=== PATIENT | female | born 1995 | race Caucasian/White ===

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

== ENCOUNTER → 2018-06-16 | Outpatient (REF) | payer OTHER, MEDICAID ==
[~2018-06-16] MED LIST: BUSP15TA47; RITA10TA; ZOLO50TA
== END ==
LOC: M LABNEURO 13:01
PROVIDERS: ATTEND Physician Assistant Medical
DX: E55.9 Vitamin D deficiency, unspecified (principal)

== ENCOUNTER 2019-10-13 18:11 | Emergency (ER) | payer MEDICAID, OTHER, SELFPAY ==
[~2019-10-13] VITALS: Ht 154.9 cm; Wt 67.6 kg
[2019-10-13] MEDS ORDERED: PRENATAL VIT (18:18)
[2019-10-13] MEDS ORDERED: NS 1,000 ML IV ONE (19:00)
[2019-10-13] MEDS ORDERED: METOCLOPRAMIDE INJ 10MG/2ML VIAL (J2765 PER 1) IV ONE (19:00)
[2019-10-13 19:28] LABS: BASO % 0.3 % (0.0-1.0); EOS # 0.1 10^3/uL (0.0-0.5); EOS % 1.1 % (0.0-3.0); HEMATOCRIT 41.9 % (36.0-47.0); HEMOGLOBIN 14.5 g/dl (12.0-15.5); LYMPH # 2.3 10^3/uL (1.5-5.0); LYMPH % 23.7 % (24.0-44.0); MEAN CORPUSCULAR HEMOGLOBIN 32.2 pg (27.0-33.0); MEAN CORPUSCULAR HGB CONC 34.6 g/dl (32.0-36.5); MEAN CORPUSCULAR VOLUME 93.1 fl (80.0-96.0); MONO # 0.8 10^3/uL (0.0-0.8); NEUTROPHILS # 6.3 10^3/uL (1.5-8.5); NEUTROPHILS % 66.6 % (36.0-66.0); PLATELET COUNT, AUTOMATED 256 10^3/uL (150-450); WHITE BLOOD COUNT 9.5 10^3/uL (4.0-10.0)
[2019-10-13 20:14] LABS: ALBUMIN 3.6 GM/DL (3.2-5.2); ALT/SGPT 21 U/L (12-78); BILIRUBIN,DIRECT 0.3 MG/DL (0.0-0.2); BILIRUBIN,TOTAL 1.4 MG/DL (0.2-1.0); BLOOD UREA NITROGEN 9 MG/DL (7-18); CALCIUM LEVEL 9.1 MG/DL (8.5-10.1); CARBON DIOXIDE LEVEL 19 MEQ/L (21-32); CHLORIDE LEVEL 106 MEQ/L (98-107); GLOMERULAR FILTRATION RATE > 60.0 (>60); GLUCOSE, FASTING 63 MG/DL (70-100); LIPASE 24 U/L (73-393); POTASSIUM SERUM 3.3 MEQ/L (3.5-5.1); SODIUM LEVEL 135 MEQ/L (136-145); TOTAL PROTEIN 7.1 GM/DL (6.4-8.2)
[2019-10-13 20:37] LABS: HCG, SERUM QUANTITATIVE 59213 MIU/ML
--- NOTE | 2019-10-13 21:26 | REPVR ---
PROCEDURE INFORMATION: Exam: US Abdomen, Limited; Right Upper Quadrant Exam date and time: 10/13/2019 9:02 PM Age: 24 years old Clinical indication: Nausea and vomiting; ; Additional info: N/v TECHNIQUE: Imaging protocol: US abdomen. Real time ultrasound with image documentation. Limited exam focused on the right upper quadrant. COMPARISON: No relevant prior studies available. FINDINGS: Liver: Unremarkable. Gallbladder: No gallstones. No gallbladder wall thickening or pericholecystic fluid. Negative sonographic Santizo's sign, as per the performing wool cleaner. Common bile duct: No stones. No ductal dilatation. Pancreas: Unremarkable as visualized. Right kidney: No mass. No definite stones. No hydronephrosis. IMPRESSION: No acute sonographic findings. Electronically signed by: Patrick Brown On 10/13/2019 21:26:07 PM
[2019-10-13] MEDS ORDERED: REGL10TA6 PO (21:46)
[2019-10-13 21:49] VITALS: BP 108/54
== END 2019-10-13 21:54 | disposition home or self-care (01) ==
LOC: M ED 18:11
DX: O21.0 Mild hyperemesis gravidarum (principal); O99.341 Other mental disorders complicating pregnancy, first trimester; F41.9 Anxiety disorder, unspecified; F33.9 Major depressive disorder, recurrent, unspecified; O99.331 Smoking (tobacco) complicating pregnancy, first trimester; F17.210 Nicotine dependence, cigarettes, uncomplicated; Z3A.00 Weeks of gestation of pregnancy not specified; Z88.8 Allergy status to other drugs, medicaments and biological substances
CPT/HCPCS: 76705; 80048; 80076; 81001; 83690; 84702; 85025; 96374; 99284; J2765

== ENCOUNTER → 2019-11-03 | Outpatient (CLI) | payer MEDICAID, OTHER ==
[~2019-11-03] MED LIST changes: +PRENATAL VIT; +REGL10TA6 PO
[2019-11-03 17:45] LABS: BASO % 0.4 % (0.0-1.0); EOS # 0.2 10^3/uL (0.0-0.5); EOS % 2.5 % (0.0-3.0); HEMATOCRIT 40.9 % (36.0-47.0); HEMOGLOBIN 13.8 g/dl (12.0-15.5); LYMPH # 2.5 10^3/uL (1.5-5.0); LYMPH % 31.6 % (24.0-44.0); MEAN CORPUSCULAR HEMOGLOBIN 32.2 pg (27.0-33.0); MEAN CORPUSCULAR HGB CONC 33.7 g/dl (32.0-36.5); MEAN CORPUSCULAR VOLUME 95.3 fl (80.0-96.0); MONO # 0.7 10^3/uL (0.0-0.8); MONO % 8.5 % (0.0-5.0); NEUTROPHILS # 4.5 10^3/uL (1.5-8.5); NEUTROPHILS % 56.9 % (36.0-66.0); PLATELET COUNT, AUTOMATED 263 10^3/uL (150-450); RED BLOOD COUNT 4.29 10^6/uL (4.00-5.40); WHITE BLOOD COUNT 7.9 10^3/uL (4.0-10.0)
[2019-11-03 19:04] LABS: HEPATITIS C VIRUS ABY INDEX 0.1 INDEX (<0.8); HIV 1&2 SCREEN CENTAUR NEGATIVE (NEGATIVE)
== END ==
LOC: M PLALAB 14:43
PROVIDERS: ATTEND Obstetrics & Gynecology
DX: Z34.01 Encounter for supervision of normal first pregnancy, first trimester (principal); Z3A.00 Weeks of gestation of pregnancy not specified

== ENCOUNTER → 2019-12-01 | Outpatient (REF) | payer MEDICAID, OTHER | LOC: M SFHCWAGY 16:55 | PROVIDERS: ATTEND Advanced Practice Midwife | DX: Z34.02 Encounter for supervision of normal first pregnancy, second trimester (principal) ==

== ENCOUNTER → 2019-12-30 | Outpatient (REF) | payer OTHER ==
[~2019-12-30] MED LIST changes: +ESCI10TA2 PO
== END ==
LOC: M SFHCWAGY 16:52
PROVIDERS: ATTEND Advanced Practice Midwife
DX: Z34.02 Encounter for supervision of normal first pregnancy, second trimester (principal); Z3A.00 Weeks of gestation of pregnancy not specified

== ENCOUNTER → 2019-12-30 | Outpatient (CLI) | payer OTHER ==
--- NOTE | 2019-12-30 17:33 | REP ---
INDICATION: ANATOMY COMPARISON: None. TECHNIQUE: Transabdominal obstetrical ultrasound with color Doppler evaluation. FINDINGS: Examination demonstrates a single live intrauterine in cephalic presentation. motion is identified by technologist. Placenta is noted anterior and grade 1 without evidence for placenta previa or abruption. Amniotic fluid volume is normal. Cervix measures 3.5 cm in length and appears closed.. Gestational age by LMP 18 weeks 2 days with VALENTINA 05/30/2020. Gestational age by current measurements 18 weeks 2 days with VALENTINA 05/30/2020. FHR equals 161 beats per minute. BPD: 4.3 cm 19 weeks 0 days HC: 15.4 cm 18 weeks 3 days AC: 12.5 cm 18 weeks 1 day FL: 2.5 cm is 17 weeks 5 days HL: 2.5 cm 18 weeks 0 days HC/AC: 1.23 Estimated weight 220 grams (29thpercentile). Anatomical assessment demonstrates normal structures including cranium, choroid plexus, cavum, cerebellum/posterior fossa, facial features, lungs, four-chamber heart/ventricular outflow tracts, diaphragm, stomach, cord insertion/three-vessel cord, kidneys/bladder, spine, and extremities. IMPRESSION: Single live intrauterine in cephalic presentation demonstrating appropriate estimated weight and growth. Anatomical assessment is complete and normal. <Electronically signed by Steve Malik > 12/30/19 [id number]
== END ==
LOC: M WHC 12:28
PROVIDERS: ATTEND Advanced Practice Midwife
DX: Z34.02 Encounter for supervision of normal first pregnancy, second trimester (principal); Z3A.18 18 weeks gestation of pregnancy

== ENCOUNTER 2020-01-02 08:13 | Emergency (ER) | payer OTHER ==
[~2020-01-02] VITALS: Ht 154.9 cm; Wt 65.6 kg
[~2020-01-02 08:13] MED LIST changes: -ESCI10TA2 PO
[2020-01-02] MEDS ORDERED: NS 1,000 ML IV ONE (08:30)
[2020-01-02 09:21] LABS: AMPHETAMINES LEVEL URINE NEGATIVE (NEGATIVE); BARBITURATES URINE NEGATIVE (NEGATIVE); BENZODIAZEPINES URINE NEGATIVE (NEGATIVE); CANNABINOIDS URINE NEGATIVE (NEGATIVE); COCAINE METABOLITE URINE NEGATIVE (NEGATIVE); METHADONE URINE NEGATIVE (NEGATIVE); OPIATES URINE NEGATIVE (NEGATIVE); PHENCYCLIDINE URINE NEGATIVE (NEGATIVE)
[2020-01-02 09:24] LABS: HEMATOCRIT 35.3 % (36.0-47.0); HEMOGLOBIN 12.5 g/dl (12.0-15.5); MEAN CORPUSCULAR HEMOGLOBIN 32.3 pg (27.0-33.0); MEAN CORPUSCULAR HGB CONC 35.4 g/dl (32.0-36.5); MEAN CORPUSCULAR VOLUME 91.2 fl (80.0-96.0); PLATELET COUNT, AUTOMATED 286 10^3/uL (150-450); RED BLOOD COUNT 3.87 10^6/uL (4.00-5.40); WHITE BLOOD COUNT 8.7 10^3/uL (4.0-10.0)
[2020-01-02 10:00] LABS: ACETAMINOPHEN LEVEL < 2.0 UG/ML (10.0-30.0); ALBUMIN 3.8 GM/DL (3.2-5.2); ALT/SGPT 27 U/L (12-78); BILIRUBIN,DIRECT 0.2 MG/DL (0.0-0.2); BILIRUBIN,TOTAL 1.2 MG/DL (0.2-1.0); BLOOD UREA NITROGEN 5 MG/DL (7-18); CALCIUM LEVEL 9.4 MG/DL (8.5-10.1); CARBON DIOXIDE LEVEL 20 MEQ/L (21-32); CHLORIDE LEVEL 104 MEQ/L (98-107); CREATININE FOR GFR 0.47 MG/DL (0.55-1.30); ETHYL ALCOHOL (ETHANOL) < 0.003 % (0.000-0.010); GLOMERULAR FILTRATION RATE > 60.0 (>60); GLUCOSE, FASTING 87 MG/DL (70-100); POTASSIUM SERUM 3.6 MEQ/L (3.5-5.1); SALICYLATE LEVEL < 1.7 MG/DL (5.0-30.0); SODIUM LEVEL 135 MEQ/L (136-145)
[2020-01-02] MEDS ORDERED: ESCI10TA2 PO (11:49)
[2020-01-02] MEDS ORDERED: ACETAMINOPHEN TAB 650MG DOSE (2X325MG) PO ONE (16:45)
--- NOTE | 2020-01-02 22:02 | ECGEPIP ---
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
[2020-01-03 07:38] VITALS: BP 128/59
== END 2020-01-03 07:45 ==
LOC: M ED 08:13
DX: O99.342 Other mental disorders complicating pregnancy, second trimester (principal); R45.851 Suicidal ideations; F41.0 Panic disorder [episodic paroxysmal anxiety]; F32.9 Major depressive disorder, single episode, unspecified; O99.412 Diseases of the circulatory system complicating pregnancy, second trimester; R00.0 Tachycardia, unspecified; I45.10 Unspecified right bundle-branch block; O99.332 Smoking (tobacco) complicating pregnancy, second trimester; F17.200 Nicotine dependence, unspecified, uncomplicated; Z88.6 Allergy status to analgesic agent; Z79.899 Other long term (current) drug therapy; Z3A.18 18 weeks gestation of pregnancy
CPT/HCPCS: 80048; 80076; 80307; 84443; 85027; 93005; 96360; 99284; G0480; U0002

== ENCOUNTER → 2020-02-28 | Outpatient (REF) | payer OTHER ==
[~2020-02-28] MED LIST changes: +ESCI10TA16 PO
[2020-02-28 13:46] LABS: HEMATOCRIT 35.4 % (36.0-47.0); HEMOGLOBIN 12.1 g/dl (12.0-15.5); MEAN CORPUSCULAR HEMOGLOBIN 33.6 pg (27.0-33.0); MEAN CORPUSCULAR HGB CONC 34.2 g/dl (32.0-36.5); MEAN CORPUSCULAR VOLUME 98.3 fl (80.0-96.0); PLATELET COUNT, AUTOMATED 303 10^3/uL (150-450); WHITE BLOOD COUNT 12.9 10^3/uL (4.0-10.0)
== END ==
LOC: M PLALAB 11:12
PROVIDERS: ATTEND Advanced Practice Midwife
DX: O99.342 Other mental disorders complicating pregnancy, second trimester (principal)

== ENCOUNTER → 2020-03-02 | Outpatient (CLI) | payer OTHER | LOC: M LAB 08:10 | PROVIDERS: ATTEND Advanced Practice Midwife | DX: O99.810 Abnormal glucose complicating pregnancy (principal); Z3A.00 Weeks of gestation of pregnancy not specified ==

== ENCOUNTER → 2020-03-21 | Outpatient (REF) | payer OTHER | LOC: M PLALAB 15:15 | PROVIDERS: ATTEND Advanced Practice Midwife | DX: O99.342 Other mental disorders complicating pregnancy, second trimester (principal) | CPT/HCPCS: 36415; 86850; 86901; J2790 ==

== ENCOUNTER → 2020-04-04 | Outpatient (CLI) | payer OTHER, MEDICAID ==
--- NOTE | 2020-04-04 11:59 | REP ---
INDICATION: GROWTH PATRICIA. COMPARISON: 12/30/2019. TECHNIQUE: Real-time sonographic evaluation of the gravid uterus performed. FINDINGS: Estimated gestational age is32 weeks 0 days, EDC 05/30/2020. Today's measurements indicate appropriate growth. Presentation: Cephalic Placenta anterior, grade 2, without evidence of placenta previa. heart rate is recorded at 174 beats per minute. Amniotic fluid is subjectively normal. PATRICIA 17.8, normal range 8.6-24.2. Closed cervical length is measured at 3 cm. Biometry chart: BPD: 81 mm, 32 weeks 3 days, 57th percentile. HC: 291 mm, 32 weeks 1 days, 51st percentile AC: 294 mm, 33 weeks 3 days, 70th percentile Femur length: 59 mm, 30 weeks 5 days, 30th percentile HC to AC ratio: 0.99, normal range 0.95-1.14. Estimated weight: 1959g, 51st percentile. anatomy: The stomach, kidneys, bladder and three-vessel cord are visualized and are grossly unremarkable. IMPRESSION: Viable single intrauterine gestation as above. Appropriate growth. <Electronically signed by Juan Kulkarni > 04/04/20 [id number]
== END ==
LOC: M WHC 10:48
PROVIDERS: ATTEND Advanced Practice Midwife
DX: O24.410 Gestational diabetes mellitus in pregnancy, diet controlled (principal); Z3A.32 32 weeks gestation of pregnancy

== ENCOUNTER → 2020-04-25 | Outpatient (CLI) | payer OTHER ==
--- NOTE | 2020-04-25 12:43 | REP ---
INDICATION: GESTATIONAL DIABETES,GROWTH,PATRICIA. COMPARISON: 04/04/2020. TECHNIQUE: Multiple ultrasonographic images of the gravid uterus. FINDINGS: There is a single intrauterine gestation in a cephalic presentation. The placenta is anterior with grade 2 maturity. There is no previa. There is a three-vessel umbilical cord. heart rate is 149 beats per minute. Amniotic fluid volume subjectively is increased. Amniotic fluid index is 23.9. Normal is 7.9-24.9. The composite ultrasound gestational age is 34 weeks 0 days with an VALENTINA of 06/06/2020. Gestational age by the 1st ultrasound is 35 weeks 0 days with an VALENTINA of 05/30/2020. Gestational age by LMP is 35 weeks 0 days with an VALENTINA of 05/30/2020. Estimated weight is 2600 g/5 lb, 11 oz. This is the 51st percentile for 35 weeks 0 days. IMPRESSION: size, dates and amniotic fluid cent Other findings as discussed above. Assessment as discussed above. <Electronically signed by Juan Boswell > 04/25/20 2350
== END ==
LOC: M WHC 10:22
PROVIDERS: ATTEND Advanced Practice Midwife
DX: O24.410 Gestational diabetes mellitus in pregnancy, diet controlled (principal); Z3A.34 34 weeks gestation of pregnancy

== ENCOUNTER 2020-04-27 09:20 | Outpatient (CLI) | payer MEDICAID, OTHER ==
[~2020-04-27] VITALS: Ht 154.9 cm; Wt 82.6 kg
[2020-04-27] MEDS ORDERED: METF500T13 PO (09:47)
[2020-04-27] MEDS ORDERED: EFFE150C2 PO (09:47)
[2020-04-27] MEDS ORDERED: PRENTAB9 PO (09:47)
[2020-04-27 09:49] VITALS: BP 123/71
[2020-04-27] MEDS ORDERED: ACETAMINOPHEN 500 MG TAB PO ONE (10:10)
[2020-04-27 10:49] LABS: APPEARANCE, URINE HAZY (CLEAR); BACTERIA, URINE AUTO 1+ (NEGATIVE); BILIRUBIN, URINE AUTO NEGATIVE (NEGATIVE); BLOOD, URINE BLOOD NEGATIVE (NEGATIVE); COLOR, URINE YELLOW (YELLOW); GLUCOSE, URINE (UA) AUTO NEGATIVE (NEGATIVE); KETONE, URINE AUTO NEGATIVE (NEGATIVE); LEUKOCYTE ESTERASE, URINE AUTO 1+ (NEGATIVE); MUCUS, URINE SMALL (NEGATIVE); NITRITE, URINE AUTO NEGATIVE (NEGATIVE); PROTEIN, URINE AUTO NEGATIVE (NEGATIVE); RBC, URINE AUTO 2 /HPF (0-3); SPECIFIC GRAVITY URINE AUTO 1.015 (1.002-1.035); SQUAMOUS EPITHELIAL CELL UR AU 4 /HPF (0-6); UROBILINOGEN, URINE AUTO 0.2 mg/dL (0.0-2.0); WBC, URINE AUTO 7 /HPF (0-3)
[2020-04-27 11:30] VITALS: BP 121/64
--- NOTE | 2020-04-27 12:42 | IPNPDOC ---
Text Note Date of Service The patient was seen on 04/27/20. NOTE Subjective: Love is a 24 year old female who is at 35.2 weeks gestation with an VALENTINA of 05/30/20 based off of her LMP and consistent with her first trimester ultrasound. She initiated care in her first trimester of . Her has been complicated by by depression/anxiety/panic attacks with an admission to [facility] during ; smoking; A2GDM on metformin 1000 mg PO BID. She has been non-compliant with diet and refused to take insulin. She presents to L&D with complaints of pain in her lower right quadrant that comes and goes and is sharp at times. She states this started last night at about 2300 but she was able to sleep through the majority of the night on and off. She denies doing anything or taking anything for her pain. She denies pain anywhere else on her abdomen. Denies vaginal bleeding. Reports 2 days ago she thought she had leaking of fluid for the day then reports it stopped. She reports active movement. She denies contractions. Given Tylenol. Pain improved from an 8/10 to a 2/10. Current medications: Effexor XR 150 mg, metformin 1000 mg BID, Olanzapine MHx: A2GDM, depression, anxiety, panic attacks with history of admission to [facility] during for suicidal ideations SHx:wisdom teeth FHx: no history per patient Social HX: single, smoker, denies alcohol or drug use OBHx: Objective: FHR: 140, moderate variability, positive accelerations, no deceleration. [place]: occasional contractions General: Alert and oriented. Patient does not appear to be in any distress. Respiratory: regular rate and rhythm without use of accessory muscles Abdomen: soft and non-tender with palpation Ultrasound: cephalic presentation, fetus very active, placenta left anterior, PATRICIA 15+ cm. Three pockets of fluid measures (5.74, 4.04, 5.40). SCE: 1/80/-1, soft, anterior, no show. Extremities: generalized edema. Assessment: IUP at 35.2 weeks, abdominal discomfort, not in active labor Plan: GBS obtained. Patient discharged to home with precautions. Reviewed comfort measures for discomforts in . Appointment scheduled for next Thursday. Reviewed access to care, labor signs, kick count, and danger signs to report. VS,Fishbone, I+O VS, Fishbone, I+O Vital Signs Date Time Temp Pulse Resp B/P (MAP) Pulse Ox O2 Delivery O2 Flow Rate FiO2 04/27/20 11:30 80 18 121/64 (83) 04/27/20 09:49 98.0 JOAQUIN SCHILLING Apr 27, 2020 12:42
== END 2020-04-27 11:47 | disposition home or self-care (01) ==
LOC: M LDO 09:20
PROVIDERS: ATTEND Advanced Practice Midwife
DX: O26.893 Other specified pregnancy related conditions, third trimester (principal); R10.31 Right lower quadrant pain; Z3A.35 35 weeks gestation of pregnancy; O24.415 Gestational diabetes mellitus in pregnancy, controlled by oral hypoglycemic drugs; O99.333 Smoking (tobacco) complicating pregnancy, third trimester; F17.210 Nicotine dependence, cigarettes, uncomplicated; Z91.19 Patient's noncompliance with other medical treatment and regimen

== ENCOUNTER 2020-05-05 17:51 | Inpatient (IN) | payer OTHER ==
[~2020-05-05] VITALS: Ht 154.9 cm; Wt 83.3 kg
[~2020-05-05 17:51] MED LIST changes: +EFFE150C2 PO; +METF500T13 PO; +PRENTAB9 PO
[2020-05-05 19:06] VITALS: BP 116/55
[2020-05-05] MEDS ORDERED: OLAN5TAB PO (19:11)
[2020-05-05 20:17] VITALS: BP 134/74
[2020-05-05 21:37] VITALS: BP 127/72
--- NOTE | 2020-05-05 21:44 | HPEPDOC ---
Obstetrical History & Physical General Date of Admission May 05, 2020 at 21:28 History of Present Illness 24 yo G1 at 36 3/7 weeks by LMP c/w 14 week ultrasound (EDC=05/30/2020) presents with contractions every 5-6 minutes since the prior evening. They increased in intensity. No VB. + FM. Chief Complaint: Contractions, term Information Provided By: Patient Age: 24 : 1 Term: 0 Pre-term: 0 Abortions: 0 Care Care: Good Care Dating Final EDC: May 30, 2020 Final EDC by: LMP, 2nd trimester (US) Antepartum Course Diagnos(e)s A2 GDM: Metformin 1000 mg BID Past Medical History Past Obstetrical History : Past Obstetrical History: Primgravida Past Medical History Medical History Medical Hx: Depression/Anxiety/ Panic attacks On Effexor, Olanzapine Prior admission to [facility] for suicidal ideations Surgical History: Denies/None Family History Significant Family History: No pertinent family hx Social History Marital Status: Single Family situation: Spouse/partner home Psychosocial History: Anxiety, Depression, Suicidal thoughts * Smoker: non-smoker Alcohol: Denies Allergies Coded Allergies: ibuprofen (Verified Allergy, Intermediate, HIVES, 10/13/19) Medications Scheduled Metformin HCl (Metformin HCl) 500 Mg Tablet, 1,000 MG PO BID Olanzapine (Olanzapine) 5 Mg Tablet, 5 MG PO QPM No.137/Iron/Folic Acd ( Vitamin Tablet) 1 Each Tablet, 1 TAB PO DAILY Venlafaxine HCl (Effexor Xr) 150 Mg Cap.er.24h, 1 CAP PO DAILY Physical Examination Physical Examination GENERAL: Alert and oriented times three. BREAST: . ABDOMEN: Gravid and non-tender to touch. FETUS: Is vertex (VTX) by sterile vaginal examination (SVE), fetus is vertex (VTX) by Rahat. HEART RATE: Regular rate and rhythm. LUNGS: Clear to auscultation (CTA). EXTREMITIES: No edema. No clonus. Deep tendon reflexes (DTRs) + . Vital Signs/I&O Vital Signs Date Time Temp Pulse Resp B/P (MAP) Pulse Ox O2 Delivery O2 Flow Rate FiO2 05/05/20 20:17 109 16 134/74 (94) 05/05/20 19:06 97.7 98 Room Air Laboratory Data 24H LABS Laboratory Tests 2 05/05/20 21:32: Serology Scanned Report Hepatitis B Testing Pertinent Laboratoy Data Blood Type: O- Group B Streptococcus: Negative Vaginal Examination Dilation: 4 cm Effacement: 100% Station: -1 Cervical Consistency: Soft Cervical Position: Middle Presentation: Cephalic presentation Assessment Variability: Moderate Accelerations: Positive Decelerations: None Tocometer Contractions: Yes Frequency: regular Assessment/Plan Assessment Pt is a 24-year-old (G)1 para (P)0 at 36+3 weeks by LMP c/w 14-week ultrasound presents to Labor and Delivery in labor. Plan Admit and orient. Photonics Technician and consent. Group B Streptococcus (GBS) negative. Labs and intravenous (IV) per unit protocol. Anticipate [normal spontaneous delivery ()]. C-S as appropriate. EMELY FOOTE MD May 05, 2020 21:44
[2020-05-05] MEDS ORDERED: BUTORPHANOL 2 MG/ML INJ (J0595) IV ONE (21:45)
[2020-05-05] MEDS ORDERED: PROMETHAZINE INJ 25 MG/ML VIAL (J2550) IV ONE (21:45)
[2020-05-05 21:59] LABS: HEMATOCRIT 37.2 % (36.0-47.0); HEMOGLOBIN 12.7 g/dl (12.0-15.5); MEAN CORPUSCULAR HEMOGLOBIN 32.1 pg (27.0-33.0); MEAN CORPUSCULAR HGB CONC 34.1 g/dl (32.0-36.5); MEAN CORPUSCULAR VOLUME 93.9 fl (80.0-96.0); PLATELET COUNT, AUTOMATED 311 10^3/uL (150-450); RED BLOOD COUNT 3.96 10^6/uL (4.00-5.40); WHITE BLOOD COUNT 16.2 10^3/uL (4.0-10.0)
[2020-05-05 22:13] VITALS: BP 110/67
[2020-05-05 23:19] VITALS: BP 117/67
[2020-05-06] VITALS (30 sets, daily range): BP systolic 101–151; BP diastolic 51–89
[2020-05-06] MEDS ORDERED: FENTANYL 2MCG/ML ROPIVACAINE 0.2% IN 0.9% NACL 100ML IVBAG As Ordered ONE ×2 (03:09→12:34)
[2020-05-06] MEDS ORDERED: LR 1,000 ML IV SCH (03:31)
[2020-05-06] MEDS ORDERED: LACTATED RINGER'S 1000 ML IV STA (03:31)
[2020-05-06] MEDS ORDERED: EPIDURAL/PCA KEYS XX PRN (04:30)
[2020-05-06] MEDS ORDERED: NALOXONE INJ 0.4MG/1ML VIAL (J2310 PER 1MG) IV PRN (04:30)
[2020-05-06] MEDS ORDERED: REFRIGERATOR IV KEYS XX PRN (04:30)
[2020-05-06] MEDS ORDERED: ONDANSETRON 4MG/2ML VIAL IV PRN (04:30)
[2020-05-06] MEDS ORDERED: ePHEDrine SULFATE 25 MG/5 ML(5MG/ML) SYRINGE IV PRN (04:30)
[2020-05-06] MEDS ORDERED: LACTATED RINGER'S 1000 ML IV PRN (04:30)
[2020-05-06] MEDS ORDERED: EPIDURAL COMMENT XX SCH (04:30)
[2020-05-06] MEDS ORDERED: diphenhydrAMINE 50MG/ML VIAL (J1200) IV PRN (04:30)
[2020-05-06] MEDS: FENTANYL/ROPIVACAINE/NACL BAG 100 ML EPIDURAL SCH ×2 (04:35→12:40)
--- NOTE | 2020-05-06 07:38 | IPNPDOC ---
Obstetrical Progress Note Date of Service May 06, 2020 Subjective 24 yo G1 at 36 4/7 weeks in labor. Comfortable with epidural Objective Vital Signs Date Time Temp Pulse Resp B/P (MAP) Pulse Ox O2 Delivery O2 Flow Rate FiO2 05/06/20 06:57 99 18 115/56 (75) 05/06/20 05:56 97.9 05/05/20 19:06 98 Room Air Assessment Variability: Moderate Accelerations: Positive Decelerations: None Heart Rate Tracing: Category I Tocometer Contractions: Yes Frequency: regular Sterile Vaginal Examination Dilation: 5 cm Effacement (%): 100% Station: 0 Cervical Consistency: Soft Cervical Position: Middle Postion/Presentation: Cephalic presentation Assessment and Plan Age: 24 : 1 Term: 0 Pre-term: 0 Abortions: 0 Livin Status: Reassuring Group B Streptococcus: Negative Anticipate: Vaginal Delivery Additional Comments 24 yo G1 at 36 4/7 weeks in labor AROM performed at 0735 Consider Pitocin if needed monitor fetus discussed possibility of baby needing NICU care EMELY FOOTE MD May 06, 2020 07:38
[2020-05-06] MEDS ORDERED: OXYTOCIN DRIP 30 UNITS in IV 1 EA IV SCH (07:40)
[2020-05-06] MEDS ORDERED: VENLAFAXINE **XR** 75MG CAPSULE PO SCH (09:00)
[2020-05-06] MEDS ORDERED: RHOGAM 300 MCG (1500 IU) INJ (J2790) IM SCH (15:30)
[2020-05-06] MEDS ORDERED: ACETAMINOPHEN 500 MG TAB PO PRN (15:30)
[2020-05-06] MEDS ORDERED: METHYLERGONOVINE MALEATE 0.2 MG TAB PO PRN (15:30)
[2020-05-06] MEDS ORDERED: DIBUCAINE 1% OINTMENT 30GM TOP PRN (15:30)
[2020-05-06] MEDS ORDERED: OXYTOCIN DRIP 30 UNITS in IV 1 EA IV ONE (15:30)
[2020-05-06] MEDS ORDERED: DOCUSATE SODIUM 100MG CAPSULE PO PRN (15:30)
[2020-05-06] MEDS ORDERED: MEASLES,MUMPS,RUBELLA VACCINE INJ (MMR-II) (90707) SC SCH (15:30)
--- NOTE | 2020-05-06 15:39 | DNPDOC ---
[facility] Delivery Note Delivery Note DATE OF DELIVERY: May 06, 2020 PREDELIVERY DIAGNOSIS: 36-4/7 weeks' gestation and labor. POST DELIVERY DIAGNOSIS: Delivered. PROCEDURE: Spontaneous vaginal delivery. BRAIDING OPERATOR: Dr. Emely Foote MD ANESTHESIA: epidural. ESTIMATED BLOOD LOSS: 300 mL. FINDINGS: 6 pound 9 ounce Female , Score 8/9. DELIVERY SUMMARY: Patient is a 24-year-old 1 now para 1 who was admitted to labor and delivery for labor. She progressed to 5 cm/100% before AROM was performed. She had Pitocin added later. She had a 20 minute second stage of labor. This resulted in a spontaneous vaginal delivery of a 6 lb. 9 oz. female infant. Shoulders delivered with ease. No nuchal cord. Infant cried immediately and handed to mother. Umbilical cord clamped and cut. Placenta delivered spontaneously and appeared intact. Pt received IV Pitocin immediately after delivery of the placenta. First degree vaginal laceration repaired with 2-O C hromic in the usual fashion. Sponge and needle counts correct. EMELY FOOTE MD May 06, 2020 15:39
[2020-05-06] MEDS: ACETAMINOPHEN TAB 650MG DOSE (2X325MG) PO PRN ×2 (19:29→23:59)
[2020-05-06] MEDS: OLANZapine 5 MG TAB PO SCH (20:54)
[2020-05-07] MEDS: ACETAMINOPHEN TAB 650MG DOSE (2X325MG) PO PRN ×2 (05:38→09:40)
[2020-05-07 06:00] VITALS: BP 137/82
[2020-05-07] MEDS: PRENATAL VITAMINS CHEWABLE TABLET PO SCH (09:39)
[2020-05-07] MEDS: VENLAFAXINE **XR** 75MG CAPSULE PO SCH (09:40)
[2020-05-07 18:00] VITALS: BP 136/80
[2020-05-07] MEDS: OLANZapine 5 MG TAB PO SCH (20:41)
[2020-05-08 06:00] VITALS: BP 145/84
[2020-05-08] MEDS: VENLAFAXINE **XR** 75MG CAPSULE PO SCH (08:47)
[2020-05-08] MEDS: PRENATAL VITAMINS CHEWABLE TABLET PO SCH (08:47)
[2020-05-08] MEDS ORDERED: ACET-683 PO (10:01)
--- NOTE | 2020-05-08 10:07 | IPNPDOC ---
Progress Note Date of Service: May 08, 2020 Day#: 2 Progress Note SUBJECT: Love is a 24-year-old female who had a vaginal delivery of a fem michelle. Her was complicated by A2GDM and depression. She was taking metformin during and Effexor for depression. She has been ambulating, voiding spontaneously without issue and tolerating regular diet. Formula feeding. OBJECTIVE: VITAL SIGNS: Within normal limits, afebrile. Alert and oriented times three. Breath sounds clear to auscultation. Abdomen: Fundus firm at U-2. Soft, NTTP. Minimal lochia. ASSESSMENT: Day 2 PLAN: 1. Discharge to home today. 2. Tylenol and Motrin for pain. 3. F/u in 6 weeks VS, I&O, 24H, Fishbone Vital Signs/I&O Vital Signs Date Time Temp Pulse Resp B/P (MAP) Pulse Ox O2 Delivery O2 Flow Rate FiO2 05/08/20 06:00 98.0 102 16 145/84 (104) 100 Room Air JOAQUIN SCHILLING CNM May 08, 2020 10:07
== END 2020-05-08 10:50 | disposition home or self-care (01) | DRG 560 ==
LOC: M LDO 17:51 → M LDI 21:28 → M OBS 05-06 17:05
PROVIDERS: ADMIT Specialist; ATTEND Specialist
PROC: 10E0XZZ Delivery of Products of Conception, External Approach (ICD-10-PCS; principal; 2020-05-06)
PROC: 0HQ9XZZ Repair Perineum Skin, External Approach (ICD-10-PCS; 2020-05-06)
PROC: 10907ZC Drainage of Amniotic Fluid, Therapeutic from Products of Conception, Via Natural or Artificial Opening (ICD-10-PCS; 2020-05-06)
DX: O60.14X0 Preterm labor third trimester with preterm delivery third trimester, not applicable or unspecified (principal); O99.344 Other mental disorders complicating childbirth; F32.9 Major depressive disorder, single episode, unspecified; O24.425 Gestational diabetes mellitus in childbirth, controlled by oral hypoglycemic drugs; Z3A.36 36 weeks gestation of pregnancy; F41.0 Panic disorder [episodic paroxysmal anxiety]; O70.0 First degree perineal laceration during delivery; Z37.0 Single live birth

== ENCOUNTER → 2023-11-09 | Outpatient (CLI) | payer OTHER ==
[~2023-11-09] MED LIST changes: +ACET-683 PO; -EFFE150C2 PO; +EFFE150C3 PO; +OLAN1TAB16 PO
[2023-11-09 09:52] LABS: BASO % 0.7 % (0.0-1.0); EOS # 0.2 10^3/uL (0.0-0.5); EOS % 4.3 % (0.0-3.0); HEMOGLOBIN 15.1 g/dl (12.0-15.5); LYMPH % 37.1 % (24.0-44.0); MEAN CORPUSCULAR HEMOGLOBIN 31.9 pg (27.0-33.0); MEAN CORPUSCULAR HGB CONC 34.3 g/dl (32.0-36.5); MEAN CORPUSCULAR VOLUME 92.8 fl (80.0-96.0); MONO # 0.5 10^3/uL (0.0-0.8); MONO % 9.9 % (2.0-8.0); NEUTROPHILS # 2.6 10^3/uL (1.5-8.5); NEUTROPHILS % 47.8 % (36.0-66.0); PLATELET COUNT, AUTOMATED 307 10^3/uL (150-450); RED BLOOD COUNT 4.74 10^6/uL (4.00-5.40); WHITE BLOOD COUNT 5.3 10^3/uL (4.0-10.0)
[2023-11-09 10:19] LABS: ALBUMIN 3.8 G/DL (3.2-5.2); ALKALINE PHOSPHATASE 111 U/L (46-116); ALT/SGPT 17 U/L (7.0-40); AST/SGOT 11 U/L (<34); BILIRUBIN,TOTAL 0.8 MG/DL (0.3-1.2); BLOOD UREA NITROGEN 9 MG/DL (9-23); CALCIUM LEVEL 9.4 MG/DL (8.5-10.1); CARBON DIOXIDE LEVEL 28 MMOL/L (20-31); CHLORIDE LEVEL 106 MMOL/L (98-107); CHOLESTEROL LEVEL 226 MG/DL (<200); CHOLESTEROL RISK RATIO 8.33 (<5); GLOMERULAR FILTRATION RATE > 60.0 (>60); GLUCOSE, FASTING 93 MG/DL (60-100); HDL CHOLESTEROL 27.1 MG/DL (>40); LDL CHOLESTEROL 158.7 MG/DL (<100); NON-HDL-C 198.9 MG/DL; POTASSIUM SERUM 4.4 MMOL/L (3.5-5.1); SODIUM LEVEL 137 MMOL/L (136-145); TOTAL PROTEIN 6.8 G/DL (5.7-8.2); TRIGLYCERIDES LEVEL 201 MG/DL (<150)
[2023-11-09 10:20] LABS: TOTAL 25(OH) VITAMIN D 29.1 NG/ML (20.0-100.0)
== END ==
LOC: M LAB 08:38
PROVIDERS: ATTEND Physician Assistant Medical
DX: Z13.6 Encounter for screening for cardiovascular disorders (principal)